=== PATIENT | male | born 1970 | race American Indian/Alaskan Native ===

== ENCOUNTER 2016-12-06 20:16 | Inpatient (IN) | payer MEDICARE, OTHER ==
[2016-12-06 20:59] VITALS: BMI 24.4
[2016-12-06] MEDS: Insulin Regular 100 units/ml SC SCH (22:00)
--- NOTE | 2016-12-06 22:32 | CP.PCM.HP ---
History of Present Illness - History of Present Illness History of Present Illness: PCP: Kyara Holliday MD Chief Complaint: Multiple Sclerosis Progression HPI: 46 years old male with Hx of Spondylosis, Multiple sclerosis, was admitted at the [facility] on December and diagnosed with Secondary progression Multiple sclerosis. He was followed by the Neurologist Dr Figueroa and treated with IV MethylPrednisolone. He is discharged to the [facility] for continued care and Physical therapy. He refers less numbness to the left face, left upper and lower extremities and the back. He still has significant weakness to both lower extremities and only could ambulate with a walker. He also refers LUQ abdominal pain and constipation. PMH: Multiple Sclerosis; PSH: Spondylosis with L5-S1 Fusion 2006 SH: No smoking hx; Alcohol Social; No illegal drugs; Live alone since his wilf left a month ago FH: No hereditary diseases Allergies: NKDA Allergic to Peas; peanuts; Chocolate Present on Admission - Present on Admission Any Indicators Present on Admission: No History of DVT/PE: No History of Uncontrolled Diabetes: No Urinary Catheter: No Decubitus Ulcer Present: No Review of Systems - Constitutional Constitutional: absent: Anorexia, Fatigue, Fever, Headache - EENT Eyes: absent: Diplopia, Floaters, Photophobia, Requires Corrective Lenses Ears: absent: Decreased Hearing, Ear Discharge, Ear Pain, Tinnitus Nose/Mouth/Throat: absent: Epistaxis, Nasal Congestion, Nasal Discharge, Sinus Pain, Sinus Pressure - Cardiovascular Cardiovascular: absent: Chest Pain, Dyspnea, Leg Edema - Respiratory Respiratory: absent: Cough, Dyspnea, Wheezing - Gastrointestinal Gastrointestinal: Abdominal Pain, Constipation. absent: Diarrhea, Nausea, Vomiting Additional comments: LUQ abdominal pain - Genitourinary Genitourinary: absent: Dysuria, Flank Pain, Hematuria, Freq UTI - Musculoskeletal Musculoskeletal: Abnormal Gait, Muscle Weakness - Integumentary Integumentary: absent: Pruritus, Rash, Skin Ulcer, Sores, Striae - Neurological Neurological: Weakness. absent: Confusion, Headaches - Psychiatric Psychiatric: absent: Anxiety, Depression, Panic Attacks - Endocrine Endocrine: absent: Palpitations, Polydipsia, Polyphagia, Polyuria - Hematologic/Lymphatic Hematologic: absent: Easy Bleeding, Easy Bruising Past Patient History - Infectious Disease Hx of Infectious Diseases: None - Past Medical History & Family History Past Medical History?: Yes - Past Social History Smoking Status: Never Smoked Chewing Tobacco Use: No Cigar Use: No Alcohol: Social Drugs: Denies Home Situation {Lives}: Alone - CARDIAC Hx Cardiac Disorders: No - PULMONARY Hx Respiratory Disorders: No - NEUROLOGICAL Hx Multiple Sclerosis: Yes (primary progressive) - HEENT Hx HEENT Problems: No - RENAL Hx Chronic Kidney Disease: No - ENDOCRINE/METABOLIC Hx Endocrine Disorders: No - HEMATOLOGICAL/ONCOLOGICAL Hx Blood Disorders: No - INTEGUMENTARY Hx Dermatological Problems: No - MUSCULOSKELETAL/RHEUMATOLOGICAL Hx Falls: Yes - GASTROINTESTINAL Hx Gastrointestinal Disorders: No - GENITOURINARY/GYNECOLOGICAL Hx Genitourinary Disorders: No - PSYCHIATRIC Hx Substance Use: No - SURGICAL HISTORY Hx Surgeries: Yes Hx Orthopedic Surgery: Yes (spinal fusion for l4-l5) - ANESTHESIA Hx Anesthesia: Yes Hx Anesthesia Reactions: No Meds Allergies/Adverse Reactions: Allergies Allergy/AdvReac Type Severity Reaction Status Date / Time chocolate flavor Allergy DIZZINESS Verified 12/06/16 20:58 corn Allergy DIZZINESS Verified 12/06/16 20:58 peanuts Allergy Unknown tingling Uncoded 12/06/16 20:58 peas Allergy Unknown SHORTNESS Uncoded 06/16/15 12:38 OF BREATH Physical Exam - Head Exam Head Exam: ATRAUMATIC, NORMAL INSPECTION, NORMOCEPHALIC - Eye Exam Eye Exam: EOMI, Normal appearance Pupil Exam: NORMAL ACCOMODATION, PERRL - ENT Exam ENT Exam: Mucous Membranes Moist, Normal Exam, Normal External Ear Exam, Normal Oropharynx - Neck Exam Neck exam: Positive for: Normal Inspection. Negative for: Lymphadenopathy, Tenderness - Respiratory Exam Respiratory Exam: Clear to Auscultation Bilateral. absent: Rales, Rhonchi, Wheezes - Cardiovascular Exam Cardiovascular Exam: REGULAR RHYTHM, RRR, +S1, +S2. absent: Gallop, JVD - GI/Abdominal Exam GI & Abdominal Exam: Normal Bowel Sounds, Soft. absent: Mass, Organomegaly, Tenderness - Rectal Exam Rectal Exam: Deferred - Extremities Exam Extremities exam: Negative for: full ROM, pedal edema, tenderness - Back Exam Back exam: NORMAL INSPECTION. absent: CVA tenderness (L), CVA tenderness (R) - Neurological Exam Neurological exam: Alert, CN II-XII Intact, Oriented x3 Additional comments: No facial droop, Motor strength 1/5 at both lower extremities. - Psychiatric Exam Psychiatric exam: Normal Affect, Normal Mood - Skin Skin Exam: Dry, Intact, Normal Color, Warm Results - Labs Labs: Laboratory Results - last 24 hr 12/06/16 21:40 POC Glucose (mg/dL) 172 H HIV 1&2 antibody *ve on 12/04/16 BUN 14 Creatinine 0.9 Hb 14 Ht 43 Assessment & Plan - Assessment and Plan (Free Text) Assessment: #. Secondary Progressive Multiple Sclerosis #. Abdominal Pain Plan: 46 years old male with Hx of Spondylosis, Multiple sclerosis, was admitted at the [facility] on December First and diagnosed with Secondary progression Multiple sclerosis. Neurologist Dr Figueroa and treated with IV MethylPrednisolone. He is discharged to the [facility] for continued care and Physical therapy. #. Secondary Progressive Multiple Sclerosis - Continue Solu-Medrol 250mg IVPB Q6H for # days - Follow electrolytes/renal labs/ CBC - Regular Insulin according to sliding scale with Accucheck ACHS - Ampyra 10mg Q12H ( Non formulary) Patient has medication at his home but no one is at home - Consult Physiatry Dr Lara - PT and OT - Follow up with Dr Figueroa Neurologist one week after D/C from Rehab as indicated in the medical records from [facility] #. Abdominal Pain secondary to constipation - Lactulose/ Miralax/Colace #. Stress Ulcer Prophylaxis with Pantoprazole #. Code Status: Full #. Surrogate Sandra Cottrell - Date & Time Date: 12/06/16 Time: 22:31
[2016-12-07 08:00] LABS: ALB/GLOB RATIO 1.3 (1.0-2.1); ALKALINE PHOSPHATASE 57 U/L (38-126); ALT/SGPT 31 U/L (21-72); AST/SGOT 18 U/L (17-59); BILIRUBIN,TOTAL 0.5 mg/dl (0.2-1.3); BLOOD UREA NITROGEN 20 mg/dl (9-20); CALCIUM 9.4 mg/dL (8.4-10.2); CARBON DIOXIDE 25 mmol/L (22-30); CHLORIDE 107 mmol/L (98-107); GFR AFRICAN-AMERICAN > 60; GLUCOSE,RANDOM 158 mg/dL (75-110); POTASSIUM 4.4 MMOL/L (3.6-5.0); SODIUM 139 mmol/l (132-148); TOTAL PROTEIN 6.2 G/DL (6.3-8.2)
[2016-12-07 08:25] LABS: BASO % 0.2 % (0.0-2.0); HEMATOCRIT 41.3 % (35.0-51.0); LYMPH # 0.9 K/uL (1.0-4.3); LYMPH % 5.2 % (20.0-40.0); MEAN CELL VOLUME 80.7 fl (80.0-94.0); MEAN CORPUSCULAR HEMOGLOBIN 26.6 pg (27.0-31.0); MEAN CORPUSCULAR HGB CONC 32.9 g/dL (33.0-37.0); MEAN PLATELET VOLUME 9.5 fl (7.2-11.7); MONO # 0.9 K/uL (0.0-0.8); MONO % 5.3 % (0.0-10.0); NEUT # 16.1 K/uL (1.8-7.0); NEUT % 89.3 % (50.0-75.0); PLATELET COUNT 150 K/uL (130-400); RED CELL DISTRIBUTION WIDTH 14.2 % (11.5-14.5)
[2016-12-07] MEDS: Insulin Regular 100 units/ml SC SCH ×4 (08:33→21:29)
[2016-12-07] MEDS: Pantoprazole 40 mg EC Tab PO SCH (08:35)
[2016-12-07] MEDS: POLYETHYLENE GLYCOL 3350 17 GM/Dose PACKET PO SCH ×2 (08:35→17:15)
[2016-12-07 08:55] LABS: PARTIAL THROMBOPLASTIN TIME 22.8 SECONDS (23.3-32.5)
[2016-12-07] MEDS ORDERED: CYCLOBENZAPRINE 5 MG PO SCH (09:00)
[2016-12-07] MEDS ORDERED: DALFAMPRIDINE 10 MG PO SCH (09:00)
[2016-12-07 09:50] LABS: NEUTROPHIL 87 % (42-75); TOTAL CELLS COUNTED 100
[2016-12-07] MEDS: Enoxaparin 60 mg Syringe SC SCH (12:29)
--- NOTE | 2016-12-07 18:02 | CP.PCM.CON ---
History of Present Illness - History of Present Illness History of Present Illness: Dr Lara PMR consultation on Jimmy Cottrell, born 1970, who has been admitted to [facility] for acute inpatient rehabilitation following an admission for MS exacerbation. He has a 20 year history of MS. Dr Figueroa has been following him for almost 15 years. He has primarily L>R and LE>UE weakness. Each time he has a flare (which is 2x/yr usually) he is a little worse. He does not use an assistive device for ambulation usually. He has fallen on multiple occasions Review of Systems - Constitutional Constitutional: absent: Anorexia, Chills - EENT Nose/Mouth/Throat: absent: Nasal Congestion - Cardiovascular Cardiovascular: absent: Chest Pain - Respiratory Respiratory: absent: Dyspnea - Gastrointestinal Gastrointestinal: Constipation (x5 days) - Musculoskeletal Musculoskeletal: absent: Arthralgias - Neurological Neurological: Abnormal Gait Past Patient History - Infectious Disease Hx of Infectious Diseases: None - Past Medical History & Family History Past Medical History?: Yes - Past Social History Smoking Status: Never Smoked Chewing Tobacco Use: No Cigar Use: No Alcohol: Social Drugs: Denies Home Situation {Lives}: Alone - CARDIAC Hx Cardiac Disorders: No - PULMONARY Hx Respiratory Disorders: No - NEUROLOGICAL Hx Multiple Sclerosis: Yes (primary progressive) - HEENT Hx HEENT Problems: No - RENAL Hx Chronic Kidney Disease: No - ENDOCRINE/METABOLIC Hx Endocrine Disorders: No - HEMATOLOGICAL/ONCOLOGICAL Hx Blood Disorders: No - INTEGUMENTARY Hx Dermatological Problems: No - MUSCULOSKELETAL/RHEUMATOLOGICAL Hx Falls: Yes - GASTROINTESTINAL Hx Gastrointestinal Disorders: No - GENITOURINARY/GYNECOLOGICAL Hx Genitourinary Disorders: No - PSYCHIATRIC Hx Substance Use: No - SURGICAL HISTORY Hx Surgeries: Yes Hx Orthopedic Surgery: Yes (spinal fusion for l4-l5) - ANESTHESIA Hx Anesthesia: Yes Hx Anesthesia Reactions: No Meds Allergies/Adverse Reactions: Allergies Allergy/AdvReac Type Severity Reaction Status Date / Time chocolate flavor Allergy DIZZINESS Verified 12/06/16 20:58 corn Allergy DIZZINESS Verified 12/06/16 20:58 - Medications Medications: Current Medications Alprazolam (Xanax) 0.25 mg PO HS PRN PRN Reason: Anxiety Stop: 12/13/16 22:18 Cyclobenzaprine HCl (Flexeril) 5 mg PO TID DUDLEY Last Admin: 05/04/17 17:14 Dose: 5 mg Docusate Sodium (Colace) 100 mg PO BID COUNTS INCLUDE 234 BEDS AT THE [facility] Last Admin: 12/07/16 17:14 Dose: 100 mg Enoxaparin Sodium (Lovenox) 60 mg SC DAILY COUNTS INCLUDE 234 BEDS AT THE [facility] PRN Reason: Protocol Last Admin: 12/07/16 12:29 Dose: 60 mg Home Med (Dalfampridine [Ampyra]) 10 mg PO Q12 COUNTS INCLUDE 234 BEDS AT THE [facility] Methylprednisolone 250 mg/ (Sodium Chloride) 104 mls @ 100 mls/hr IVPB Q6 COUNTS INCLUDE 234 BEDS AT THE [facility] Last Admin: 12/07/16 17:19 Dose: 100 mls/hr Insulin Human Regular (Humulin R) 0 units SC ACHS COUNTS INCLUDE 234 BEDS AT THE [facility] PRN Reason: Protocol Last Admin: 12/07/16 17:15 Dose: 2 unit Ondansetron HCl (Zofran Tab) 4 mg PO Q4 PRN PRN Reason: Nausea/Vomiting Pantoprazole Sodium (Protonix Ec Tab) 40 mg PO DAILY COUNTS INCLUDE 234 BEDS AT THE [facility] Last Admin: 12/07/16 08:35 Dose: 40 mg Polyethylene Glycol (Miralax) 17 gm PO BID COUNTS INCLUDE 234 BEDS AT THE [facility] Last Admin: 12/07/16 17:15 Dose: 17 gm Zolpidem Tartrate (Ambien) 5 mg PO HS PRN PRN Reason: Sleep Physical Exam - Constitutional Appears: No Acute Distress - Head Exam Head Exam: ATRAUMATIC, NORMAL INSPECTION, NORMOCEPHALIC - Eye Exam Eye Exam: EOMI - ENT Exam ENT Exam: Mucous Membranes Moist - Respiratory Exam Respiratory Exam: NORMAL BREATHING PATTERN - Cardiovascular Exam Cardiovascular Exam: REGULAR RHYTHM - GI/Abdominal Exam GI & Abdominal Exam: absent: Guarding - Extremities Exam Extremities exam: Negative for: calf tenderness - Neurological Exam Neurological exam: Alert, CN II-XII Intact, Oriented x3 - Psychiatric Exam Psychiatric exam: Agitated, Normal Affect - Skin Skin Exam: Warm Results - Vital Signs Recent Vital Signs: Last Vital Signs Temp 96.9 F L 12/07/16 08:23 Pulse 61 12/07/16 08:23 Resp 22 12/07/16 08:23 BP 135/76 12/07/16 08:34 Pulse Ox 98 12/07/16 08:23 - Labs Result Diagrams: 12/07/16 07:25 12/07/16 07:25 Labs: Laboratory Results - last 24 hr 12/06/16 12/07/16 12/07/16 21:40 06:31 07:25 WBC 18.0 H RBC 5.12 Hgb 13.6 Hct 41.3 MCV 80.7 MCH 26.6 L MCHC 32.9 L RDW 14.2 Plt Count 150 MPV 9.5 Neut % (Auto) 89.3 H Lymph % (Auto) 5.2 L Garza % (Auto) 5.3 Eos % (Auto) 0.0 Baso % (Auto) 0.2 Neut # 16.1 H Lymph # 0.9 L Garza # 0.9 H Eos # 0.0 Baso # 0.0 Neutrophils % (Manual) 87 H Lymphocytes % (Manual) 7 L Monocytes % (Manual) 6 Platelet Estimate Normal Anisocytosis (manual) Slight PT INR APTT Sodium Potassium Chloride Carbon Dioxide Anion Gap BUN Creatinine Est GFR ( Amer) Est GFR (Non-Af Amer) POC Glucose (mg/dL) 172 H 162 H Random Glucose Calcium Total Bilirubin AST ALT Alkaline Phosphatase Total Protein Albumin Globulin Albumin/Globulin Ratio 12/07/16 12/07/16 12/07/16 07:25 07:25 11:53 WBC RBC Hgb Hct MCV MCH MCHC RDW Plt Count MPV Neut % (Auto) Lymph % (Auto) Garza % (Auto) Eos % (Auto) Baso % (Auto) Neut # Lymph # Garza # Eos # Baso # Neutrophils % (Manual) Lymphocytes % (Manual) Monocytes % (Manual) Platelet Estimate Anisocytosis (manual) PT 11.9 H INR 1.14 H APTT 22.8 L Sodium 139 Potassium 4.4 Chloride 107 Carbon Dioxide 25 Anion Gap 11 BUN 20 Creatinine 0.9 Est GFR ( Amer) > 60 Est GFR (Non-Af Amer) > 60 POC Glucose (mg/dL) 151 H Random Glucose 158 H Calcium 9.4 Total Bilirubin 0.5 AST 18 ALT 31 Alkaline Phosphatase 57 Total Protein 6.2 L Albumin 3.5 Globulin 2.7 Albumin/Globulin Ratio 1.3 12/07/16 15:53 WBC RBC Hgb Hct MCV MCH MCHC RDW Plt Count MPV Neut % (Auto) Lymph % (Auto) Garza % (Auto) Eos % (Auto) Baso % (Auto) Neut # Lymph # Garza # Eos # Baso # Neutrophils % (Manual) Lymphocytes % (Manual) Monocytes % (Manual) Platelet Estimate Anisocytosis (manual) PT INR APTT Sodium Potassium Chloride Carbon Dioxide Anion Gap BUN Creatinine Est GFR ( Amer) Est GFR (Non-Af Amer) POC Glucose (mg/dL) 214 H Random Glucose Calcium Total Bilirubin AST ALT Alkaline Phosphatase Total Protein Albumin Globulin Albumin/Globulin Ratio Assessment & Plan - Assessment and Plan (Free Text) Assessment: Patient with secondary progressive MS with a flare. + sugars increased from steroid + constipation, he would like to increase the Miralax He usually gets Baclofen and I will write for this PT/OT to continue to help increase functional independence Team conference for d/c planning Pain: controlled Vascular: no evidence of DVT good coordination in the UE, decrease handgrip on the left Left LE not anti-gravity at all and only trace distal movement at the ankle right LE 3/5 grossly Patient is an excellent acute rehabilitation candidate and will have focused pain management, PT, OT and recreational therapy to help facilitate a safe and appropriate d/c plan Impairment code 03.1
[2016-12-07] MEDS ORDERED: POLYETHYLENE GLYCOL 3350 17 GM/Dose PACKET PO SCH (19:17)
--- NOTE | 2016-12-08 00:02 | CP.PCM.CON ---
History of Present Illness - History of Present Illness History of Present Illness: 46 y/o male, with PMHx of multiple sclerosis, presents to ED with complaint of weakness for the last 3 days. Patient states he has been unable to walk due to weakness of lower extremities. Also, reports LUQ abdominal pain. Denies any nausea or vomiting. Patient states he has had similar weakness in the past. Denies headache, fever, chills, chest pain, SOB, or other associated symptoms. Chief Complaint (Nursing): Weakness/Neurological Deficit His urine is showing 36 RBCs, 4 WBCs He is sabering from Multiple Sclerosis since more than 20 years and is my patient since more than 15 years. He is receiving Aubagio, and he keeps on changing his medicine on his own. He is also on Ampyra, Zanaflex. History Per: Patient Multiple Sclerosis Relapsing remitting initially that progressed into Progressive. 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 he has left side hemiparesis, poor coordination History/Exam Limitations: no limitations Onset/Duration Of Symptoms: Days Current Symptoms Are (Timing): Still Present Fall Associated With With Symptoms: No Recent travel outside of the [place]: No Past Medical History Reviewed: Historical Data, Nursing Documentation, Vital Signs Vital Signs: Last Vital Signs Temp 97.8 F 12/04/16 17:51 Pulse 67 12/04/16 17:51 Resp 16 12/04/16 17:51 BP 118/75 12/04/16 17:51 Pulse Ox 98 12/04/16 22:34 - Medical History PMH: Multiple Sclerosis Relapsing remitting initially that progressed into Progressive. 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 he has left side hemiparesis, poor coordination Denies: Chronic Kidney Disease Family History: States: Diabetes - Social History Hx Tobacco Use: No Hx Alcohol Use: No Hx Substance Use: No - Immunization History Hx Tetanus Toxoid Vaccination: No Hx Influenza Vaccination: No Hx Pneumococcal Vaccination: No Review Of Systems Except As Marked, All Systems Reviewed And Found Negative. Constitutional: Negative for: Fever, Chills Cardiovascular: Negative for: Chest Pain Respiratory: Negative for: Shortness of Breath Gastrointestinal: Positive for: Abdominal Pain. Negative for: Nausea, Vomiting , Diarrhea Skin: Negative for: Rash Neurological: Positive for: Weakness. Negative for: Headache, Dizziness Physical Exam - Physical Exam Appears: Non-toxic, No Acute Distress Skin: Normal Color, Warm, Dry Head: Atraumatic, Normacephalic Chest: Symmetrical Cardiovascular: Rhythm Regular, No Murmur Respiratory: Normal Breath Sounds, No Rales, No Rhonchi, No Wheezing Gastrointestinal/Abdominal: Soft, Tenderness (LUQ), No Guarding, No Rebound Back: Normal Inspection Extremity: Normal ROM, Capillary Refill (< 2 sec. ), Other (weakness BL lower extremities, mild weakness left upper extremity) Neurological/Psych: Oriented x3, Normal Speech, Normal Cognition Clinical Impression: Multiple sclerosis exacerbation, Abdominal pain, Gastritis Past Patient History - Infectious Disease Hx of Infectious Diseases: None - Past Medical History & Family History Past Medical History?: Yes - Past Social History Smoking Status: Never Smoked - CARDIAC Hx Cardiac Disorders: No - PULMONARY Hx Respiratory Disorders: No - NEUROLOGICAL Hx Multiple Sclerosis: Yes (primary progressive) - HEENT Hx HEENT Problems: No - RENAL Hx Chronic Kidney Disease: No - ENDOCRINE/METABOLIC Hx Endocrine Disorders: No - HEMATOLOGICAL/ONCOLOGICAL Hx Blood Disorders: No - INTEGUMENTARY Hx Dermatological Problems: No - MUSCULOSKELETAL/RHEUMATOLOGICAL Hx Falls: Yes - GASTROINTESTINAL Hx Gastrointestinal Disorders: No - GENITOURINARY/GYNECOLOGICAL Hx Genitourinary Disorders: No - PSYCHIATRIC Hx Substance Use: No - SURGICAL HISTORY Hx Surgeries: Yes Hx Orthopedic Surgery: Yes (spinal fusion for l4-l5) - ANESTHESIA Hx Anesthesia: Yes Hx Anesthesia Reactions: No Meds Home Medications: Home Medication List Medication Instructions Recorded Confirmed Type ALPRAZolam [Xanax] 0.25 mg PO HS PRN #10 tab 12/06/16 Rx Cyclobenzaprine [Flexeril] 5 mg PO TID tab 12/06/16 Rx Dalfampridine [Ampyra] 10 mg PO Q12 12/06/16 Rx Docusate [Colace] 100 mg PO DAILY cap 12/06/16 Rx Enoxaparin [Lovenox] 60 mg SC DAILY syr 12/06/16 Rx Furosemide [Lasix] 20 mg PO DAILY tab 12/06/16 Rx Insulin Human Regular [Novolin R] 0 unit SC ACHS unit 12/06/16 Rx Pantoprazole [Protonix Inj] 40 mg IVP DAILY vial 12/06/16 Rx Polyethylene Glycol 3350 [Miralax] 17 gm PO BID packet 12/06/16 Rx methylPREDNISolone [Solu-Medrol] 250 mg IVP Q6H #14 ml 12/06/16 Rx Allergies/Adverse Reactions: Allergies Allergy/AdvReac Type Severity Reaction Status Date / Time chocolate flavor Allergy DIZZINESS Verified 12/06/16 20:58 corn Allergy DIZZINESS Verified 12/06/16 20:58 - Medications Medications: Current Medications Sodium Chloride (Sodium Chloride 0.9%) 1,000 mls @ 100 mls/hr IV .Q10H ONE Stop: 12/05/16 05:27 Last Admin: 12/04/16 19:55 Dose: 100 mls/hr Results - Vital Signs Recent Vital Signs: Last Vital Signs Temp 97.6 F 12/05/16 00:18 Pulse 61 12/05/16 00:18 Resp 20 12/05/16 00:18 BP 125/80 12/05/16 00:18 Pulse Ox 95 12/05/16 00:18 - Labs Result Diagrams: 12/04/16 20:02 12/04/16 20:02 Assessment & Plan (1) Abdominal pain Status: Acute (2) Gastritis Status: Acute (3) Multiple sclerosis exacerbation Status: Acute (4) Back strain Status: Chronic (5) Difficulty walking Status: Acute (6) Facial palsy Assessment and Plan: mild condition of left Facial Palsy. Status: Acute Past Patient History - Infectious Disease Hx of Infectious Diseases: None - Past Medical History & Family History Past Medical History?: Yes - Past Social History Smoking Status: Never Smoked Chewing Tobacco Use: No Cigar Use: No Alcohol: Social Drugs: Denies Home Situation {Lives}: Alone - CARDIAC Hx Cardiac Disorders: No - PULMONARY Hx Respiratory Disorders: No - NEUROLOGICAL Hx Multiple Sclerosis: Yes (primary progressive) - HEENT Hx HEENT Problems: No - RENAL Hx Chronic Kidney Disease: No - ENDOCRINE/METABOLIC Hx Endocrine Disorders: No - HEMATOLOGICAL/ONCOLOGICAL Hx Blood Disorders: No - INTEGUMENTARY Hx Dermatological Problems: No - MUSCULOSKELETAL/RHEUMATOLOGICAL Hx Falls: Yes - GASTROINTESTINAL Hx Gastrointestinal Disorders: No - GENITOURINARY/GYNECOLOGICAL Hx Genitourinary Disorders: No - PSYCHIATRIC Hx Substance Use: No - SURGICAL HISTORY Hx Surgeries: Yes Hx Orthopedic Surgery: Yes (spinal fusion for l4-l5) - ANESTHESIA Hx Anesthesia: Yes Hx Anesthesia Reactions: No Meds Allergies/Adverse Reactions: Allergies Allergy/AdvReac Type Severity Reaction Status Date / Time chocolate flavor Allergy DIZZINESS Verified 12/06/16 20:58 corn Allergy DIZZINESS Verified 12/06/16 20:58 - Medications Medications: Current Medications Alprazolam (Xanax) 0.25 mg PO HS PRN PRN Reason: Anxiety Stop: 12/13/16 22:18 Baclofen (Lioresal) 10 mg PO TID [facility] Docusate Sodium (Colace) 100 mg PO BID [facility] Last Admin: 12/07/16 17:14 Dose: 100 mg Enoxaparin Sodium (Lovenox) 60 mg SC DAILY [facility] PRN Reason: Protocol Last Admin: 12/07/16 12:29 Dose: 60 mg Home Med (Dalfampridine [Ampyra]) 10 mg PO Q12 [facility] Methylprednisolone 250 mg/ (Sodium Chloride) 104 mls @ 100 mls/hr IVPB Q6 [facility] Last Admin: 12/07/16 23:05 Dose: 100 mls/hr Insulin Human Regular (Humulin R) 0 units SC ACHS [facility] PRN Reason: Protocol Last Admin: 12/07/16 21:29 Dose: Not Given Ondansetron HCl (Zofran Tab) 4 mg PO Q4 PRN PRN Reason: Nausea/Vomiting Pantoprazole Sodium (Protonix Ec Tab) 40 mg PO DAILY [facility] Last Admin: 12/07/16 08:35 Dose: 40 mg Polyethylene Glycol (Miralax) 34 gm PO BID [facility] Zolpidem Tartrate (Ambien) 5 mg PO HS PRN PRN Reason: Sleep Last Admin: 12/07/16 23:04 Dose: 5 mg Physical Exam - Neurological Exam Additional comments: Physical Exam - Neurological Exam Additional comments: Mental Status: Awake, Alert, Oriented X 3, Normal Memory X 3 Speech is less Dysarthric, fluent coherent Cranial Nerves II to XII: Left facial Palsy UMNL type Left TERESA Tongue is central, normal Gag reflex. He is able to shrug his shoulders. less on the left side. Motor: Increased spastic tone on the left side of UE and LE Left Pronator Drift left hemiparesis DTR: exaggerated on the left Toes are upgoing on the left side Sensory: sense of pain on the left side Cerebellar: Poor coordination in general, mainly on the left side. Abnormal FNT of the Left and Poor movements on the Left Stature and Gait: Now he is able to walk and stand on his own with some difficulty Results - Vital Signs Recent Vital Signs: Last Vital Signs Temp 98.1 F 12/07/16 21:09 Pulse 75 12/07/16 21:09 Resp 20 12/07/16 21:09 BP 140/79 12/07/16 21:09 Pulse Ox 98 12/07/16 21:09 - Labs Result Diagrams: 12/07/16 07:25 12/07/16 07:25 Labs: Laboratory Results - last 24 hr 12/07/16 12/07/16 12/07/16 06:31 07:25 07:25 WBC 18.0 H RBC 5.12 Hgb 13.6 Hct 41.3 MCV 80.7 MCH 26.6 L MCHC 32.9 L RDW 14.2 Plt Count 150 MPV 9.5 Neut % (Auto) 89.3 H Lymph % (Auto) 5.2 L [place] % (Auto) 5.3 Eos % (Auto) 0.0 Baso % (Auto) 0.2 Neut # 16.1 H Lymph # 0.9 L [place] # 0.9 H Eos # 0.0 Baso # 0.0 Neutrophils % (Manual) 87 H Lymphocytes % (Manual) 7 L Monocytes % (Manual) 6 Platelet Estimate Normal Anisocytosis (manual) Slight PT 11.9 H INR 1.14 H APTT 22.8 L Sodium Potassium Chloride Carbon Dioxide Anion Gap BUN Creatinine Est GFR ( Amer) Est GFR (Non-Af Amer) POC Glucose (mg/dL) 162 H Random Glucose Calcium Total Bilirubin AST ALT Alkaline Phosphatase Total Protein Albumin Globulin Albumin/Globulin Ratio 12/07/16 12/07/16 12/07/16 07:25 11:53 15:53 WBC RBC Hgb Hct MCV MCH MCHC RDW Plt Count MPV Neut % (Auto) Lymph % (Auto) [place] % (Auto) Eos % (Auto) Baso % (Auto) Neut # Lymph # [place] # Eos # Baso # Neutrophils % (Manual) Lymphocytes % (Manual) Monocytes % (Manual) Platelet Estimate Anisocytosis (manual) PT INR APTT Sodium 139 Potassium 4.4 Chloride 107 Carbon Dioxide 25 Anion Gap 11 BUN 20 Creatinine 0.9 Est GFR ( Amer) > 60 Est GFR (Non-Af Amer) > 60 POC Glucose (mg/dL) 151 H 214 H Random Glucose 158 H Calcium 9.4 Total Bilirubin 0.5 AST 18 ALT 31 Alkaline Phosphatase 57 Total Protein 6.2 L Albumin 3.5 Globulin 2.7 Albumin/Globulin Ratio 1.3 12/07/16 20:44 WBC RBC Hgb Hct MCV MCH MCHC RDW Plt Count MPV Neut % (Auto) Lymph % (Auto) [place] % (Auto) Eos % (Auto) Baso % (Auto) Neut # Lymph # [place] # Eos # Baso # Neutrophils % (Manual) Lymphocytes % (Manual) Monocytes % (Manual) Platelet Estimate Anisocytosis (manual) PT INR APTT Sodium Potassium Chloride Carbon Dioxide Anion Gap BUN Creatinine Est GFR ( Amer) Est GFR (Non-Af Amer) POC Glucose (mg/dL) 259 H Random Glucose Calcium Total Bilirubin AST ALT Alkaline Phosphatase Total Protein Albumin Globulin Albumin/Globulin Ratio Assessment & Plan (1) Abdominal pain Assessment and Plan: much less than before and was related to constipation, it improved after moving his bowel by using a suppository. Status: Acute (2) Difficulty walking Status: Chronic (3) Edema of foot Status: Acute (4) Facial palsy Assessment and Plan: Left side mild facial Palsy that is improving on Solumedrol and on Rehab. Status: Acute (5) Gastritis Assessment and Plan: improved on treatment Status: Acute (6) Low TSH level Status: Acute (7) Low back pain Assessment and Plan: H/O Lumbar Radiculopathy Also having a H/O Cervical Radiculopathy Status: Acute (8) Multiple sclerosis exacerbation Status: Acute
[2016-12-08] MEDS: Insulin Regular 100 units/ml SC SCH ×4 (07:37→22:46)
[2016-12-08] MEDS: Enoxaparin 60 mg Syringe SC SCH (08:49)
[2016-12-08] MEDS: Pantoprazole 40 mg EC Tab PO SCH (08:50)
--- NOTE | 2016-12-08 11:01 | CP.PCM.PN ---
Subjective - Date & Time of Evaluation Date of Evaluation: 12/08/16 Time of Evaluation: 10:59 - Subjective Subjective: MS exacerbation Objective - Vital Signs/Intake and Output Vital Signs (last 24 hours): Temp Pulse Resp BP Pulse Ox 97.7 F 64 20 135/68 99 12/08/16 08:10 12/08/16 08:10 12/08/16 08:10 12/08/16 08:10 12/08/16 08:10 - Medications Medications: Current Medications Alprazolam (Xanax) 0.25 mg PO HS PRN PRN Reason: Anxiety Stop: 12/13/16 22:18 Baclofen (Lioresal) 10 mg PO TID [facility] Last Admin: 12/08/16 08:49 Dose: 10 mg Docusate Sodium (Colace) 100 mg PO BID [facility] Last Admin: 12/08/16 08:49 Dose: 100 mg Enoxaparin Sodium (Lovenox) 60 mg SC DAILY [facility] PRN Reason: Protocol Last Admin: 12/08/16 08:49 Dose: 60 mg Home Med (Dalfampridine [Ampyra]) 10 mg PO Q12 [facility] Methylprednisolone 250 mg/ (Sodium Chloride) 104 mls @ 100 mls/hr IVPB Q6 [facility] Last Admin: 12/08/16 05:43 Dose: 100 mls/hr Insulin Human Regular (Humulin R) 0 units SC ACHS [facility] PRN Reason: Protocol Last Admin: 12/08/16 07:37 Dose: 1 unit Ondansetron HCl (Zofran Tab) 4 mg PO Q4 PRN PRN Reason: Nausea/Vomiting Pantoprazole Sodium (Protonix Ec Tab) 40 mg PO DAILY [facility] Last Admin: 12/08/16 08:50 Dose: 40 mg Polyethylene Glycol (Miralax) 34 gm PO BID [facility] Zolpidem Tartrate (Ambien) 5 mg PO HS PRN PRN Reason: Sleep Last Admin: 12/07/16 23:04 Dose: 5 mg - Labs Labs: 12/07/16 07:25 12/07/16 07:25 PT 11.9 SECONDS (9.6-11.2) H 12/07/16 07:25 INR 1.14 (0.92-1.08) H 12/07/16 07:25 APTT 22.8 SECONDS (23.3-32.5) L 12/07/16 07:25 Physiatry Overall Plan of Care - Overall Plan of Care Estimated Length of Stay in Weeks: 3 Rehab Impairment: Mobility, Gait, Speech, Balance, Coordination Etiologic Diagnosis: Other (MS exacerbation) - Anticipated Interventions Physical Therapy:: Yes Occupational Therapy:: Yes Recreational Therapy:: Yes - Therapy Goals Bed Mobility: Supervision Ambulation: Supervision Functional Positional Changes:: Supervision - Discharge Plan Identification of Barriers to Discharge: Home Situation Discharge Destination: Home
--- NOTE | 2016-12-08 11:14 | CP.PCM.PN ---
Subjective - Date & Time of Evaluation Date of Evaluation: 12/08/16 Time of Evaluation: 11:12 - Subjective Subjective: Patient seen and discussed with hospitalist had good relief with suppository some LBP from prior fusion and we are getting an x-ray he is otherwise looking good today continue care excellent acute rehab candidate Objective - Vital Signs/Intake and Output Vital Signs (last 24 hours): Temp Pulse Resp BP Pulse Ox 97.7 F 64 20 135/68 99 12/08/16 08:10 12/08/16 08:10 12/08/16 08:10 12/08/16 08:10 12/08/16 08:10 - Medications Medications: Current Medications Alprazolam (Xanax) 0.25 mg PO HS PRN PRN Reason: Anxiety Stop: 12/13/16 22:18 Baclofen (Lioresal) 10 mg PO TID [facility] Last Admin: 12/08/16 08:49 Dose: 10 mg Docusate Sodium (Colace) 100 mg PO BID [facility] Last Admin: 12/08/16 08:49 Dose: 100 mg Enoxaparin Sodium (Lovenox) 60 mg SC DAILY [facility] PRN Reason: Protocol Last Admin: 12/08/16 08:49 Dose: 60 mg Home Med (Dalfampridine [Ampyra]) 10 mg PO Q12 [facility] Methylprednisolone 250 mg/ (Sodium Chloride) 104 mls @ 100 mls/hr IVPB Q6 [facility] Last Admin: 12/08/16 05:43 Dose: 100 mls/hr Insulin Human Regular (Humulin R) 0 units SC ACHS [facility] PRN Reason: Protocol Last Admin: 12/08/16 07:37 Dose: 1 unit Ondansetron HCl (Zofran Tab) 4 mg PO Q4 PRN PRN Reason: Nausea/Vomiting Pantoprazole Sodium (Protonix Ec Tab) 40 mg PO DAILY [facility] Last Admin: 12/08/16 08:50 Dose: 40 mg Polyethylene Glycol (Miralax) 34 gm PO BID [facility] Zolpidem Tartrate (Ambien) 5 mg PO HS PRN PRN Reason: Sleep Last Admin: 12/07/16 23:04 Dose: 5 mg - Labs Labs: 12/07/16 07:25 12/07/16 07:25 PT 11.9 SECONDS (9.6-11.2) H 12/07/16 07:25 INR 1.14 (0.92-1.08) H 12/07/16 07:25 APTT 22.8 SECONDS (23.3-32.5) L 12/07/16 07:25
--- NOTE | 2016-12-08 12:40 | CP.PCM.PN ---
Subjective - Date & Time of Evaluation Date of Evaluation: 12/08/16 Time of Evaluation: 12:40 - Subjective Subjective: pt seen examined bedside. discussed extensively his coccyx pain, will obtain XR. otherwise patient states he feels he is doing well and would like to be discharged home soon. vitals are stable no acute distress no other complaints at this time Objective - Vital Signs/Intake and Output Vital Signs (last 24 hours): Temp Pulse Resp BP Pulse Ox 97.7 F 64 20 135/68 99 12/08/16 08:10 12/08/16 08:10 12/08/16 08:10 12/08/16 08:10 12/08/16 08:10 - Medications Medications: Current Medications Alprazolam (Xanax) 0.25 mg PO HS PRN PRN Reason: Anxiety Stop: 12/13/16 22:18 Baclofen (Lioresal) 10 mg PO TID [facility] Last Admin: 12/08/16 08:49 Dose: 10 mg Docusate Sodium (Colace) 100 mg PO BID [facility] Last Admin: 12/08/16 08:49 Dose: 100 mg Enoxaparin Sodium (Lovenox) 60 mg SC DAILY [facility] PRN Reason: Protocol Last Admin: 12/08/16 08:49 Dose: 60 mg Home Med (Dalfampridine [Ampyra]) 10 mg PO Q12 [facility] Methylprednisolone 250 mg/ (Sodium Chloride) 104 mls @ 100 mls/hr IVPB Q6 [facility] Last Admin: 12/08/16 05:43 Dose: 100 mls/hr Insulin Human Regular (Humulin R) 0 units SC ACHS [facility] PRN Reason: Protocol Last Admin: 12/08/16 11:30 Dose: Not Given Ondansetron HCl (Zofran Tab) 4 mg PO Q4 PRN PRN Reason: Nausea/Vomiting Pantoprazole Sodium (Protonix Ec Tab) 40 mg PO DAILY [facility] Last Admin: 12/08/16 08:50 Dose: 40 mg Polyethylene Glycol (Miralax) 34 gm PO BID [facility] Zolpidem Tartrate (Ambien) 5 mg PO HS PRN PRN Reason: Sleep Last Admin: 12/07/16 23:04 Dose: 5 mg - Labs Labs: 12/07/16 07:25 12/07/16 07:25 PT 11.9 SECONDS (9.6-11.2) H 12/07/16 07:25 INR 1.14 (0.92-1.08) H 12/07/16 07:25 APTT 22.8 SECONDS (23.3-32.5) L 12/07/16 07:25 - Constitutional Appears: Non-toxic, No Acute Distress - Head Exam Head Exam: ATRAUMATIC, NORMOCEPHALIC - Eye Exam Eye Exam: EOMI, PERRL - ENT Exam ENT Exam: Mucous Membranes Moist, Normal Oropharynx - Neck Exam Neck Exam: Normal Inspection. absent: Lymphadenopathy - Respiratory Exam Respiratory Exam: Clear to Ausculation Bilateral, NORMAL BREATHING PATTERN. absent: Wheezes - Cardiovascular Exam Cardiovascular Exam: RRR, +S1, +S2. absent: Gallop, Rubs - GI/Abdominal Exam GI & Abdominal Exam: Soft, Normal Bowel Sounds. absent: Tenderness, Mass, Organomegaly - Extremities Exam Extremities Exam: Normal Capillary Refill. absent: Calf Tenderness - Back Exam Back Exam: absent: CVA tenderness (L), CVA tenderness (R) - Neurological Exam Neurological Exam: Alert, Awake - Psychiatric Exam Psychiatric exam: Normal Affect, Normal Mood - Skin Skin Exam: Dry, Warm Assessment and Plan - Assessment and Plan (Free Text) Plan: 46 years old male with Hx of Spondylosis, Multiple sclerosis, was admitted at the [facility] on December and diagnosed with Secondary progression Multiple sclerosis. Neurologist Dr Figueroa and treated with IV MethylPrednisolone. He is discharged to the [facility] for continued care and Physical therapy. Secondary Progressive Multiple Sclerosis - Continue Solu-Medrol 250mg IVPB Q6H - Follow electrolytes/renal labs/ CBC - Regular Insulin according to sliding scale with Accucheck ACHS - Ampyra 10mg Q12H ( Non formulary) Patient has medication at his home but no one is at home - Consult Physiatry Dr Lara - PT and OT, continue, doing well - Follow up with Dr Figueroa Neurologist one week after D/C from Rehab as indicated in the medical records from [facility] Abdominal Pain secondary to constipation - Lactulose/ Miralax/Colace Coccyx pain - Sacrum and Coccyx XR for today Stress Ulcer Prophylaxis with Pantoprazole Code Status: Full Surrogate Sandra Cottrell
[2016-12-09] MEDS: Insulin Regular 100 units/ml SC SCH ×4 (06:50→22:18)
[2016-12-09] MEDS: Pantoprazole 40 mg EC Tab PO SCH (09:26)
[2016-12-09] MEDS: Enoxaparin 60 mg Syringe SC SCH (09:26)
[2016-12-09] MEDS: POLYETHYLENE GLYCOL 3350 17 GM/Dose PACKET PO SCH (09:26)
--- NOTE | 2016-12-09 11:10 | RAD ---
PROCEDURE: Radiographs of the Sacrum and Coccyx HISTORY: coccyx pain COMPARISON: None available. TECHNIQUE: Frontal and lateral views of the sacrum and coccyx FINDINGS: BONES: Sacrum and coccyx unremarkable. No fracture or focal lesion. SACROILIAC JOINTS: Only inferior portions of the sacroiliac joints are identified. These are normal in outline without abnormal widening. Visualized pubic ramus and symphysis are unremarkable. OTHER FINDINGS: Degenerative disc disease is seen at L5-S1. IMPRESSION: No appreciable fracture or lytic process. Degenerative disc disease at L5-S1.
[2016-12-10] MEDS: Insulin Regular 100 units/ml SC SCH ×4 (06:56→22:21)
[2016-12-10 08:16] LABS: HEMATOCRIT 40.7 % (35.0-51.0); MEAN CORPUSCULAR HEMOGLOBIN 26.8 pg (27.0-31.0); MEAN CORPUSCULAR HGB CONC 33.5 g/dL (33.0-37.0); RED CELL DISTRIBUTION WIDTH 14.3 % (11.5-14.5); WHITE BLOOD COUNT 13.1 K/uL (4.8-10.8)
[2016-12-10] MEDS: Pantoprazole 40 mg EC Tab PO SCH (08:37)
[2016-12-10] MEDS: Enoxaparin 40 mg Syringe SC SCH (08:37)
[2016-12-10] MEDS: POLYETHYLENE GLYCOL 3350 17 GM/Dose PACKET PO SCH (08:37)
--- NOTE | 2016-12-10 23:04 | CP.PCM.PN ---
Subjective - Date & Time of Evaluation Date of Evaluation: 12/10/16 Time of Evaluation: 18:45 - Subjective Subjective: He is having twitches in his left shoulder which might be related to his hyper intake of Vitamins, mainly Vitamin D, Vitamin B6, Vitamin A, Vitamin E, Vitamin K His vitamin D level is high as well as his Vitamin B 12 is high. He takes so many vitamins daily. He had an EEG and will get the results He is receiving IV Solumedrol for a course of 5 full days of 250 mg Q6 hrs. P/E is showing less left sided weakness and more coordination. Objective - Vital Signs/Intake and Output Vital Signs (last 24 hours): Temp Pulse Resp BP Pulse Ox 97.2 F L 76 20 142/85 97 12/10/16 09:10 12/10/16 09:10 12/10/16 09:10 12/10/16 14:22 12/10/16 09:10 - Medications Medications: Current Medications Alprazolam (Xanax) 0.25 mg PO HS PRN PRN Reason: Anxiety Stop: 12/13/16 22:18 Amoxicillin (Amoxil 500 Mg Cap) 500 mg PO Q8 [facility] Stop: 12/12/16 06:01 Last Admin: 12/10/16 21:53 Dose: 500 mg Baclofen (Lioresal) 10 mg PO TID [facility] Last Admin: 12/10/16 16:58 Dose: 10 mg Docusate Sodium (Colace) 100 mg PO BID [facility] Last Admin: 12/10/16 16:59 Dose: 100 mg Enoxaparin Sodium (Lovenox) 40 mg SC DAILY [facility] PRN Reason: Protocol Last Admin: 12/10/16 08:37 Dose: 40 mg Furosemide (Lasix) 20 mg PO DAILY [facility] Last Admin: 12/10/16 14:22 Dose: 20 mg Home Med (Dalfampridine [Ampyra]) 10 mg PO Q12 [facility] Methylprednisolone 250 mg/ (Sodium Chloride) 104 mls @ 100 mls/hr IVPB 0300, 0900,1500,2100 [facility] Stop: 12/12/16 03:00 Last Admin: 12/10/16 21:43 Dose: 100 mls/hr Insulin Human Regular (Humulin R) 0 units SC ACHS [facility] PRN Reason: Protocol Last Admin: 12/10/16 22:21 Dose: Not Given Ondansetron HCl (Zofran Tab) 4 mg PO Q4 PRN PRN Reason: Nausea/Vomiting Pantoprazole Sodium (Protonix Ec Tab) 40 mg PO DAILY [facility] Last Admin: 12/10/16 08:37 Dose: 40 mg Polyethylene Glycol (Miralax) 17 gm PO DAILY [facility] Last Admin: 12/10/16 08:37 Dose: 17 gm Zolpidem Tartrate (Ambien) 5 mg PO HS PRN PRN Reason: Sleep Last Admin: 12/10/16 21:57 Dose: 5 mg - Labs Labs: 12/10/16 07:45 12/07/16 07:25 PT 11.9 SECONDS (9.6-11.2) H 12/07/16 07:25 INR 1.14 (0.92-1.08) H 12/07/16 07:25 APTT 22.8 SECONDS (23.3-32.5) L 12/07/16 07:25 Assessment and Plan (1) Abdominal pain Status: Acute (2) Difficulty walking Status: Chronic (3) Edema of foot Status: Acute (4) Facial palsy Status: Acute (5) Gastritis Status: Acute (6) Low TSH level Status: Acute (7) Low back pain Status: Acute (8) Multiple sclerosis exacerbation Status: Acute
[2016-12-11] MEDS: Insulin Regular 100 units/ml SC SCH ×2 (07:08→22:19)
[2016-12-11] MEDS: Enoxaparin 40 mg Syringe SC SCH (08:19)
[2016-12-11] MEDS: Pantoprazole 40 mg EC Tab PO SCH (08:19)
[2016-12-11] MEDS: POLYETHYLENE GLYCOL 3350 17 GM/Dose PACKET PO SCH (08:19)
--- NOTE | 2016-12-11 12:56 | CP.PCM.PN ---
Subjective - Date & Time of Evaluation Date of Evaluation: 12/11/16 Time of Evaluation: 11:10 - Subjective Subjective: Pt seen and examined. Denied any complaint. Objective - Vital Signs/Intake and Output Vital Signs (last 24 hours): Temp Pulse Resp BP Pulse Ox 97.9 F 69 18 139/96 H 97 12/11/16 07:31 12/11/16 07:31 12/11/16 07:31 12/11/16 09:01 12/11/16 07:31 - Medications Medications: Current Medications Alprazolam (Xanax) 0.25 mg PO HS PRN PRN Reason: Anxiety Stop: 12/13/16 22:18 Amoxicillin (Amoxil 500 Mg Cap) 500 mg PO Q8 [facility] Stop: 12/12/16 06:01 Last Admin: 12/11/16 06:02 Dose: 500 mg Baclofen (Lioresal) 10 mg PO TID [facility] Last Admin: 12/11/16 12:23 Dose: 10 mg Docusate Sodium (Colace) 100 mg PO BID [facility] Last Admin: 12/11/16 08:16 Dose: 100 mg Enoxaparin Sodium (Lovenox) 40 mg SC DAILY [facility] PRN Reason: Protocol Last Admin: 12/11/16 08:19 Dose: 40 mg Furosemide (Lasix) 20 mg PO DAILY [facility] Last Admin: 12/11/16 09:01 Dose: 20 mg Home Med (Dalfampridine [Ampyra]) 10 mg PO Q12 [facility] Methylprednisolone 250 mg/ (Sodium Chloride) 104 mls @ 100 mls/hr IVPB 0300, 0900,1500,2100 [facility] Stop: 12/12/16 03:00 Last Admin: 12/11/16 08:14 Dose: 100 mls/hr Insulin Human Regular (Humulin R) 0 units SC 0630,2100 [facility] PRN Reason: Protocol Ondansetron HCl (Zofran Tab) 4 mg PO Q4 PRN PRN Reason: Nausea/Vomiting Pantoprazole Sodium (Protonix Ec Tab) 40 mg PO DAILY [facility] Last Admin: 12/11/16 08:19 Dose: 40 mg Polyethylene Glycol (Miralax) 17 gm PO DAILY [facility] Last Admin: 12/11/16 08:19 Dose: 17 gm Zolpidem Tartrate (Ambien) 5 mg PO HS PRN PRN Reason: Sleep Last Admin: 12/10/16 21:57 Dose: 5 mg - Labs Labs: 12/10/16 07:45 12/07/16 07:25 PT 11.9 SECONDS (9.6-11.2) H 12/07/16 07:25 INR 1.14 (0.92-1.08) H 12/07/16 07:25 APTT 22.8 SECONDS (23.3-32.5) L 12/07/16 07:25 - Constitutional Appears: No Acute Distress - Head Exam Head Exam: ATRAUMATIC - Eye Exam Eye Exam: absent: Scleral icterus - ENT Exam ENT Exam: Mucous Membranes Moist - Neck Exam Neck Exam: absent: Meningismus - Respiratory Exam Respiratory Exam: absent: Rhonchi, Wheezes, Respiratory Distress - Cardiovascular Exam Cardiovascular Exam: REGULAR RHYTHM, +S1, +S2 - GI/Abdominal Exam GI & Abdominal Exam: Soft. absent: Tenderness - Rectal Exam Rectal Exam: Deferred - Neurological Exam Neurological Exam: Alert, Oriented x3 - Psychiatric Exam Psychiatric exam: Normal Affect - Skin Skin Exam: Dry, Intact Assessment and Plan (1) Multiple sclerosis exacerbation Status: Acute (2) Abdominal pain Status: Resolved (3) Jarrell's palsy Status: Chronic - Assessment and Plan (Free Text) Assessment: 46 yo male with history of Spondylosis and Multiple sclerosis was admitted at [facility] because of MS exacerbation. He was managed with SoluMedrol then transferred to Acute Rehab for continuation of management and PT. 1. Multiple Sclerosis Exacerbation last dose of Solu-Medrol 250mg tomorrow as per Dr Carolina Lara on physiatry consult continue PT and OT 2. Abdominal Pain from constipation relieved on Lactulose/ Miralax/Colace 3. Facial Palsy right facial weakness since 2 years ago
--- NOTE | 2016-12-11 18:32 | CP.PCM.PN ---
Subjective - Date & Time of Evaluation Date of Evaluation: 12/11/16 Time of Evaluation: 18:31 - Subjective Subjective: Patient seen in room, doing ok feels much better functionally since his time here looking to d/c home able to be more independent Objective - Vital Signs/Intake and Output Vital Signs (last 24 hours): Temp Pulse Resp BP Pulse Ox 97.9 F 69 18 139/96 H 97 12/11/16 07:31 12/11/16 07:31 12/11/16 07:31 12/11/16 09:01 12/11/16 07:31 - Medications Medications: Current Medications Alprazolam (Xanax) 0.25 mg PO HS PRN PRN Reason: Anxiety Stop: 12/13/16 22:18 Amoxicillin (Amoxil 500 Mg Cap) 500 mg PO Q8 [facility] Stop: 12/12/16 06:01 Last Admin: 12/11/16 13:45 Dose: 500 mg Baclofen (Lioresal) 10 mg PO TID [facility] Last Admin: 12/11/16 16:44 Dose: 10 mg Docusate Sodium (Colace) 100 mg PO BID [facility] Last Admin: 12/11/16 16:44 Dose: 100 mg Enoxaparin Sodium (Lovenox) 40 mg SC DAILY [facility] PRN Reason: Protocol Last Admin: 12/11/16 08:19 Dose: 40 mg Furosemide (Lasix) 20 mg PO DAILY [facility] Last Admin: 12/11/16 09:01 Dose: 20 mg Home Med (Dalfampridine [Ampyra]) 10 mg PO Q12 [facility] Methylprednisolone 250 mg/ (Sodium Chloride) 104 mls @ 100 mls/hr IVPB 0300, 0900,1500,2100 [facility] Stop: 12/12/16 03:00 Last Admin: 12/11/16 16:43 Dose: 100 mls/hr Insulin Human Regular (Humulin R) 0 units SC 0630,2100 [facility] PRN Reason: Protocol Ondansetron HCl (Zofran Tab) 4 mg PO Q4 PRN PRN Reason: Nausea/Vomiting Pantoprazole Sodium (Protonix Ec Tab) 40 mg PO DAILY [facility] Last Admin: 12/11/16 08:19 Dose: 40 mg Polyethylene Glycol (Miralax) 17 gm PO DAILY [facility] Last Admin: 12/11/16 08:19 Dose: 17 gm Zolpidem Tartrate (Ambien) 5 mg PO HS PRN PRN Reason: Sleep Last Admin: 12/10/16 21:57 Dose: 5 mg - Labs Labs: 12/10/16 07:45 12/07/16 07:25 PT 11.9 SECONDS (9.6-11.2) H 12/07/16 07:25 INR 1.14 (0.92-1.08) H 12/07/16 07:25 APTT 22.8 SECONDS (23.3-32.5) L 12/07/16 07:25
[2016-12-12] MEDS: Insulin Regular 100 units/ml SC SCH ×2 (06:50→21:44)
[2016-12-12] MEDS: Enoxaparin 40 mg Syringe SC SCH ×2 (08:11→08:15)
[2016-12-12] MEDS: Pantoprazole 40 mg EC Tab PO SCH (08:11)
[2016-12-12] MEDS: POLYETHYLENE GLYCOL 3350 17 GM/Dose PACKET PO SCH (08:11)
--- NOTE | 2016-12-12 08:56 | PSY.TMCNF ---
Nursing - Vital Signs Vital Signs (Last 8 hours): Vital Signs 12/12/16 12/12/16 08:10 08:14 Temperature 98.5 F Pulse Rate 61 Respiratory 20 Rate Blood Pressure 131/68 131/68 O2 Sat by Pulse 99 Oximetry Pain: 0 - Medications/Other Issues Comment: Pt is at low nutritional risk. No goals at this time- will determine if goals are needed during rescreen of pt. Pt due for rescreen assessment by 05/22. - Bladder Management Bladder Pattern: Normal Voiding Method: Toilet, Urinal - Bowel Management Bowel Pattern: Normal - Goals/Time Frame Comments: Pt was seen during his PT session during rest break. Pt was able to identify his leisure interests such as watching television and watching videos online. Pt presents with poor safety awareness and poor education of diagnosis 2 ' videos he watches online. Pt reports he has no support system, pt reported, "Two girlfriends" and stated that his left him a month ago and now lives alone. Pt has [employer] that comes to assist pt with chores and ADL's. Pt would benefit from recreation therapy sessions to improve arousal level and safety awareness level. Physical Therapy - Bed Mobility Bed Mobility: Supervision, Verbal Cues, Contact Guard Comment: -pending fatigue and motivation - Transfers Wheelchair to Mat: Verbal Cues, Contact Guard Sit to Stand: Verbal Cues, Contact Guard, Minimal Assistance Comment: uses RW and poor motor control pattern of BLEs - Ambulation Level of Assistance: Verbal Cues, Contact Guard Distance (ft.): 12 Assistive Devices: Rolling Walker Orthoses: n/a Comment: -x 1 trial with RW with WC follow, impaired reciprocal pattern, FWB BLE. -genu recurvatum BLE (increased on L compared to R). -uses forward flexed posture leaning on BUE during gait on walker, weakness on L side with impaired hip flexion in swing and reduced R step length 2' to weakness in LLE during stance. -unable to ambulate increased distances today as he reports "I am just shot today"; patient requests to sit down - Stair Negotiation Stairs: Level of Assistance: Minimal Assistance Handrails: Right Stairs: Assistive Devices: Right Handrail Comment: 2 steps with min A with B rails with step to pattern. -pt reports he always has assistance at home for stair negotiation. -pt resistant to education on how to improve safety with stair training - Standing Balance Static Stand: Minimal Assistance Dynamic Stand: Minimal Assistance - Pain Pain (assessed during therapy session): 0 - Insight/Carryover Insight/Carryover: Fair - Patient/Family Education Comment: pt educated regarding DME and bathroom safety, pt states he understands. - Assessment/Plan Assessment: Pt is engaged in independent leisure tasks throughout his free time. Pt is encouraged to participate in sessions; however, pt expresses no interest. When provided pt with MS support and education, pt stated that he has his own resources and did not want to receive any further information or handouts. Pt presents with decrease safety awareness and decrease awareness of deficits. - Goals Timeframe: 1 week Goals: stg. pt will complete functional transfers at S level without requiring safety cues to prevent LOB. ltg. pt will complete shower txfers with shower chair at MIN A. pt will complete toilet txfers at MOD I with DME. pt will complete bathing at MIN A. pt will complete toileting at MOD I. pt will complete LE dressing at MIN A level (met) - Provider License Number: [id number] Occupational Therapy - Arousal/Attention/Orientation Patient Orientation: Person, Place, Time - ADL/IADL Self Feeding: Independent Grooming: Set-up Help Dressing-Upper Extremity: Modified Independent Dressing-Lower Extremity: Minimal Assistance - Sitting Balance Static Sitting: Independent with upper extremity support Dynamic Sitting: Requires supervision - Transfers Wheelchair to Bed Transfers: Minimal Assistance Toilet Transfers: Minimal Assistance - Upper Extremity Status Right Upper Extremity Comment: Active shoulder flexion 90*, PROM shoulder flexion WFL. MMT grossly 4-/5 Left Upper Extremity Comment: Active shoulder flexion 90*, PROM shoulder flexion WFL. MMT grossly 4-/5 - Pain Pain (assessed during therapy session): 0 - Insight/Carryover Insight/Carryover: Fair - Patient/Family Education Comment: pt educated regarding DME and bathroom safety, pt states he understands. - Assessment/Plan Assessment: Pt is engaged in independent leisure tasks throughout his free time. Pt is encouraged to participate in sessions; however, pt expresses no interest. When provided pt with MS support and education, pt stated that he has his own resources and did not want to receive any further information or handouts. Pt presents with decrease safety awareness and decrease awareness of deficits. - Goals Timeframe: 1 week Goals: stg. pt will complete functional transfers at S level without requiring safety cues to prevent LOB. ltg. pt will complete shower txfers with shower chair at MIN A. pt will complete toilet txfers at MOD I with DME. pt will complete bathing at MIN A. pt will complete toileting at MOD I. pt will complete LE dressing at MIN A level (met) - Provider Therapist: Yaima Smith License Number: [id number] Speech Therapy - Plan Assessment: Pt is engaged in independent leisure tasks throughout his free time. Pt is encouraged to participate in sessions; however, pt expresses no interest. When provided pt with MS support and education, pt stated that he has his own resources and did not want to receive any further information or handouts. Pt presents with decrease safety awareness and decrease awareness of deficits. Recreational Therapy - Participation Participation: Monitors His/Her Own Leisure Time - Attendance Attendance: Daily - Activities Leisure Activities: Television - Socialization Level of Socialization: Initiates/interacts freely with care givers and peer - Diversional Time Diversional Time: television, talking on phone - Assessment Assessment/Plan: Pt is engaged in independent leisure tasks throughout his free time. Pt is encouraged to participate in sessions; however, pt expresses no interest. When provided pt with MS support and education, pt stated that he has his own resources and did not want to receive any further information or handouts. Pt presents with decrease safety awareness and decrease awareness of deficits. Problems Currently Limiting Participation: weakness, decrease safety awareness, decrease leisure awareness level Goals and Time Frame: Pt will be encouraged to participate in 1:1 and group recreation therapy sessions 3-5x week to improve arousal level, safety awareness level, and leisure awareness level. - Provider Therapist: Doris Gross, [employer] #[id number] Nutrition - Current Diet Current Diet/ Supplement/ Feedings: Regular diet - Appetite Percent Meal Consumed: 75-100% - Assessment/Goals/Time Frame Assessment/Goals/Time Frame: Pt is at low nutritional risk. No goals at this time- will determine if goals are needed during rescreen of pt. Pt due for rescreen assessment by 12/13/16. - Provider Provider: Aimee Henley MS, RD Rehabilitation Plan - Treatment Plan Treatment Plan: Physical Therapy, Occupational Therapy, Dietary, Patient/Family Education - Discharge Plan Estimated Date of Discharge: 12/14/16 Discharge to: Home
--- NOTE | 2016-12-12 09:30 | CP.PCM.PN ---
Subjective - Date & Time of Evaluation Date of Evaluation: 12/12/16 Time of Evaluation: 09:28 - Subjective Subjective: Patient seen in room he is doing ok better compliance to some degree with therapy, but still wanting to do things his way and this is a balancing act to have him do what is right and still have him participate ELOS 12/14/16 He cannot ambulate safely for more than a short distance and will obviously need a wheelchair and rolling walker and bedside commode on discharge continue current care Objective - Vital Signs/Intake and Output Vital Signs (last 24 hours): Temp Pulse Resp BP Pulse Ox 98.5 F 61 20 131/68 99 12/12/16 09:13 12/12/16 09:13 12/12/16 09:13 12/12/16 09:13 12/12/16 08:14 - Medications Medications: Current Medications Alprazolam (Xanax) 0.25 mg PO HS PRN PRN Reason: Anxiety Stop: 12/13/16 22:18 Baclofen (Lioresal) 10 mg PO TID [facility] Last Admin: 12/12/16 08:11 Dose: 10 mg Docusate Sodium (Colace) 100 mg PO BID [facility] Last Admin: 12/12/16 08:10 Dose: 100 mg Enoxaparin Sodium (Lovenox) 40 mg SC DAILY [facility] PRN Reason: Protocol Last Admin: 12/12/16 08:15 Dose: Not Given Furosemide (Lasix) 20 mg PO DAILY [facility] Last Admin: 12/12/16 08:10 Dose: 20 mg Home Med (Dalfampridine [Ampyra]) 10 mg PO Q12 [facility] Insulin Human Regular (Humulin R) 0 units SC 0630,2100 [facility] PRN Reason: Protocol Last Admin: 12/12/16 06:50 Dose: 1 unit Ondansetron HCl (Zofran Tab) 4 mg PO Q4 PRN PRN Reason: Nausea/Vomiting Pantoprazole Sodium (Protonix Ec Tab) 40 mg PO DAILY [facility] Last Admin: 12/12/16 08:11 Dose: 40 mg Polyethylene Glycol (Miralax) 17 gm PO DAILY [facility] Last Admin: 12/12/16 08:11 Dose: 17 gm Zolpidem Tartrate (Ambien) 5 mg PO HS PRN PRN Reason: Sleep Last Admin: 12/11/16 22:44 Dose: 5 mg - Labs Labs: 12/10/16 07:45 12/07/16 07:25 PT 11.9 SECONDS (9.6-11.2) H 12/07/16 07:25 INR 1.14 (0.92-1.08) H 12/07/16 07:25 APTT 22.8 SECONDS (23.3-32.5) L 12/07/16 07:25
[2016-12-12] MEDS ORDERED: methylPREDNISolone 40 MG in Sodium Chloride 0.9% 100 ML IVPB ONE (21:55)
--- NOTE | 2016-12-13 00:10 | CP.PCM.PN ---
Subjective - Date & Time of Evaluation Date of Evaluation: 12/12/16 Time of Evaluation: 21:35 - Subjective Subjective: Today is his last day of receiving IV Solumedrol. He has tolerated the treatment and his left side hemiparesis has improved significantly. His left facial palsy has improved remarkably. He is asking for an earlier discharge. His EEG on admission is Normal. He is able to manage walking to the Bathroom. Objective - Vital Signs/Intake and Output Vital Signs (last 24 hours): Temp Pulse Resp BP Pulse Ox 97.9 F 69 20 139/71 96 12/12/16 20:26 12/12/16 20:26 12/12/16 20:26 12/12/16 20:26 12/12/16 20:26 - Medications Medications: Current Medications Alprazolam (Xanax) 0.25 mg PO HS PRN PRN Reason: Anxiety Stop: 12/13/16 22:18 Baclofen (Lioresal) 10 mg PO TID [facility] Last Admin: 12/12/16 16:43 Dose: 10 mg Docusate Sodium (Colace) 100 mg PO BID [facility] Last Admin: 12/12/16 16:43 Dose: 100 mg Enoxaparin Sodium (Lovenox) 40 mg SC DAILY [facility] PRN Reason: Protocol Last Admin: 12/12/16 08:15 Dose: Not Given Furosemide (Lasix) 20 mg PO DAILY [facility] Last Admin: 12/12/16 08:10 Dose: 20 mg Home Med (Dalfampridine [Ampyra]) 10 mg PO Q12 [facility] Insulin Human Regular (Humulin R) 0 units SC 0630,2100 [facility] PRN Reason: Protocol Last Admin: 12/12/16 21:44 Dose: Not Given Ondansetron HCl (Zofran Tab) 4 mg PO Q4 PRN PRN Reason: Nausea/Vomiting Pantoprazole Sodium (Protonix Ec Tab) 40 mg PO DAILY [facility] Last Admin: 12/12/16 08:11 Dose: 40 mg Polyethylene Glycol (Miralax) 17 gm PO DAILY [facility] Last Admin: 12/12/16 08:11 Dose: 17 gm Zolpidem Tartrate (Ambien) 5 mg PO HS PRN PRN Reason: Sleep Last Admin: 12/12/16 23:09 Dose: 5 mg - Labs Labs: 12/10/16 07:45 12/07/16 07:25 PT 11.9 SECONDS (9.6-11.2) H 12/07/16 07:25 INR 1.14 (0.92-1.08) H 12/07/16 07:25 APTT 22.8 SECONDS (23.3-32.5) L 12/07/16 07:25 Assessment and Plan (1) Difficulty walking Status: Chronic (2) Edema of foot Status: Resolved (3) Facial palsy Status: Chronic (4) Multiple sclerosis exacerbation Status: Chronic
[2016-12-13] MEDS: Insulin Regular 100 units/ml SC SCH ×2 (06:59→21:52)
[2016-12-13 08:24] VITALS: O2SAT 97
[2016-12-13] MEDS: POLYETHYLENE GLYCOL 3350 17 GM/Dose PACKET PO SCH (08:40)
[2016-12-13] MEDS: Pantoprazole 40 mg EC Tab PO SCH (08:55)
[2016-12-13] MEDS: Enoxaparin 40 mg Syringe SC SCH (09:03)
--- NOTE | 2016-12-13 13:44 | CP.PCM.PN ---
Subjective - Date & Time of Evaluation Date of Evaluation: 12/13/16 Time of Evaluation: 15:00 - Subjective Subjective: Patient seen and examined bedside.Sitting in chair in NAD but complaining of feeling weak and unable to walk as before this exacerbation .States that still has significant weakness ( and showing mostly the right side) , unable to walk more than 5 feet . States that his weakness and his low libido is probably related to side effect of steroids. Hemodynamically stable, afebrile. No acute issues overnight For discharge in AM Off solumedrol . Objective - Vital Signs/Intake and Output Vital Signs (last 24 hours): Temp Pulse Resp BP Pulse Ox 98.5 F 85 22 137/84 97 12/13/16 08:23 12/13/16 08:23 12/13/16 08:23 12/13/16 08:55 12/13/16 08:23 - Medications Medications: Current Medications Acetaminophen (Tylenol 325mg Tab) 650 mg PO Q6 PRN PRN Reason: Pain, moderate (4-7) Alprazolam (Xanax) 0.25 mg PO HS PRN PRN Reason: Anxiety Stop: 12/13/16 22:18 Baclofen (Lioresal) 10 mg PO TID [facility] Last Admin: 12/13/16 12:32 Dose: 10 mg Docusate Sodium (Colace) 100 mg PO BID [facility] Last Admin: 12/13/16 08:55 Dose: 100 mg Enoxaparin Sodium (Lovenox) 40 mg SC DAILY [facility] PRN Reason: Protocol Last Admin: 12/13/16 09:03 Dose: 40 mg Furosemide (Lasix) 20 mg PO DAILY [facility] Last Admin: 12/13/16 08:55 Dose: 20 mg Home Med (Dalfampridine [Ampyra]) 10 mg PO Q12 [facility] Insulin Human Regular (Humulin R) 0 units SC 0630,2100 [facility] PRN Reason: Protocol Last Admin: 12/13/16 06:59 Dose: Not Given Ondansetron HCl (Zofran Tab) 4 mg PO Q4 PRN PRN Reason: Nausea/Vomiting Pantoprazole Sodium (Protonix Ec Tab) 40 mg PO DAILY [facility] Last Admin: 12/13/16 08:55 Dose: 40 mg Polyethylene Glycol (Miralax) 17 gm PO DAILY [facility] Last Admin: 12/13/16 08:40 Dose: 17 gm Zolpidem Tartrate (Ambien) 5 mg PO HS PRN PRN Reason: Sleep Last Admin: 12/12/16 23:09 Dose: 5 mg - Labs Labs: 12/10/16 07:45 12/07/16 07:25 PT 11.9 SECONDS (9.6-11.2) H 12/07/16 07:25 INR 1.14 (0.92-1.08) H 12/07/16 07:25 APTT 22.8 SECONDS (23.3-32.5) L 12/07/16 07:25 - Constitutional Appears: Non-toxic, No Acute Distress - Head Exam Head Exam: ATRAUMATIC, NORMOCEPHALIC - Eye Exam Eye Exam: Normal appearance, PERRL - ENT Exam ENT Exam: Mucous Membranes Moist, Normal Exam - Neck Exam Neck Exam: Full ROM, Normal Inspection - Respiratory Exam Respiratory Exam: Clear to Ausculation Bilateral, NORMAL BREATHING PATTERN. absent: Rhonchi, Wheezes - GI/Abdominal Exam GI & Abdominal Exam: Soft, Normal Bowel Sounds. absent: Distended, Guarding, Tenderness, Rebound - Rectal Exam Rectal Exam: Deferred - Extremities Exam Extremities Exam: Normal Capillary Refill. absent: Pedal Edema - Back Exam Back Exam: NORMAL INSPECTION - Neurological Exam Neurological Exam: Alert, Awake, Oriented x3 Additional comments: right facial droop weakness more to right side - Psychiatric Exam Psychiatric exam: Normal Affect - Skin Skin Exam: Dry, Normal Color, Warm Assessment and Plan - Assessment and Plan (Free Text) Assessment: 46 yo male with history of Spondylosis and Multiple sclerosis was admitted at [facility] because of MS exacerbation. He was managed with SoluMedrol then transferred to Acute Rehab for continuation o Solumedrol IV and PT. 1. Multiple Sclerosis Exacerbation Finished course of IV solumedrol as recommended by neurologist ambulation difficulty due to weakness and gait instability. Wheelchair ordered Neurology consult with Dr. simons on board Dr Lara on physiatry consult continue PT and OT 2. Abdominal Pain from constipation relieved on Lactulose/ Miralax/Colace 3. Facial Palsy right facial weakness since 2 years ago
--- NOTE | 2016-12-14 00:42 | CP.PCM.PN ---
Subjective - Date & Time of Evaluation Date of Evaluation: 12/13/16 Time of Evaluation: 21:30 - Subjective Subjective: Not in distress, doing better after finishing his course of Solumedrol. His ability to walk is limited without the Ampyra that he left at home and has no access to it currently. Objective - Vital Signs/Intake and Output Vital Signs (last 24 hours): Temp Pulse Resp BP Pulse Ox 98.4 F 82 20 133/82 97 12/13/16 20:37 12/13/16 20:37 12/13/16 20:37 12/13/16 20:37 12/13/16 20:37 - Medications Medications: Current Medications Acetaminophen (Tylenol 325mg Tab) 650 mg PO Q6 PRN PRN Reason: Pain, moderate (4-7) Last Admin: 12/13/16 13:53 Dose: 650 mg Baclofen (Lioresal) 10 mg PO TID [facility] Last Admin: 12/13/16 17:11 Dose: 10 mg Docusate Sodium (Colace) 100 mg PO BID [facility] Last Admin: 12/13/16 17:11 Dose: 100 mg Enoxaparin Sodium (Lovenox) 40 mg SC DAILY [facility] PRN Reason: Protocol Last Admin: 12/13/16 09:03 Dose: 40 mg Furosemide (Lasix) 20 mg PO DAILY [facility] Last Admin: 12/13/16 08:55 Dose: 20 mg Home Med (Dalfampridine [Ampyra]) 10 mg PO Q12 [facility] Insulin Human Regular (Humulin R) 0 units SC 0630,2100 [facility] PRN Reason: Protocol Last Admin: 12/13/16 21:52 Dose: Not Given Ondansetron HCl (Zofran Tab) 4 mg PO Q4 PRN PRN Reason: Nausea/Vomiting Pantoprazole Sodium (Protonix Ec Tab) 40 mg PO DAILY [facility] Last Admin: 12/13/16 08:55 Dose: 40 mg Polyethylene Glycol (Miralax) 17 gm PO DAILY [facility] Last Admin: 12/13/16 08:40 Dose: 17 gm Zolpidem Tartrate (Ambien) 5 mg PO HS PRN PRN Reason: Sleep Last Admin: 12/13/16 23:51 Dose: 5 mg - Labs Labs: 12/10/16 07:45 12/07/16 07:25 PT 11.9 SECONDS (9.6-11.2) H 12/07/16 07:25 INR 1.14 (0.92-1.08) H 12/07/16 07:25 APTT 22.8 SECONDS (23.3-32.5) L 12/07/16 07:25 Assessment and Plan (1) Difficulty walking Status: Chronic (2) Facial palsy Status: Chronic (3) Low back pain Status: Chronic (4) Multiple sclerosis exacerbation Status: Chronic
[2016-12-14] MEDS: Insulin Regular 100 units/ml SC SCH (05:51)
[2016-12-14 06:52] LABS: HEMATOCRIT 44.7 % (35.0-51.0); MEAN CELL VOLUME 81.2 fl (80.0-94.0); MEAN CORPUSCULAR HEMOGLOBIN 27.4 pg (27.0-31.0); MEAN CORPUSCULAR HGB CONC 33.7 g/dL (33.0-37.0); RED CELL DISTRIBUTION WIDTH 14.2 % (11.5-14.5)
[2016-12-14] MEDS: POLYETHYLENE GLYCOL 3350 17 GM/Dose PACKET PO SCH (08:55)
[2016-12-14] MEDS: Enoxaparin 40 mg Syringe SC SCH (08:55)
[2016-12-14] MEDS: Pantoprazole 40 mg EC Tab PO SCH (08:56)
[2016-12-14 10:53] VITALS: BP 126/84; PULSE 73; RESP 21; TEMP 98
--- NOTE | 2016-12-14 13:36 | CP.PCM.DIS ---
Provider - Provider Date of Admission: 12/06/16 20:59 Attending physician: Riki Latham Consults: Dr Carolina Lara Time Spent in preparation of Discharge (in minutes): 30 Diagnosis - Discharge Diagnosis (1) Multiple sclerosis exacerbation Status: Acute Comment: completed course of IV Solumedrol as recommended by neurologist. unable to take Ampyra. Dr Figueroa and Dr Lara on consults. 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 Hospital Course - Lab Results Lab Results: Most Recent Lab Values WBC 10.0 K/uL (4.8-10.8) 12/14/16 05:25 RBC 5.51 Mil/uL (4.40-5.90) 12/14/16 05:25 Hgb 15.1 g/dL (12.0-18.0) 12/14/16 05:25 Hct 44.7 % (35.0-51.0) 12/14/16 05:25 MCV 81.2 fl (80.0-94.0) 12/14/16 05:25 MCH 27.4 pg (27.0-31.0) 12/14/16 05:25 MCHC 33.7 g/dL (33.0-37.0) 12/14/16 05:25 RDW 14.2 % (11.5-14.5) 12/14/16 05:25 Plt Count 177 K/uL (130-400) 12/14/16 05:25 MPV 9.5 fl (7.2-11.7) 12/07/16 07:25 Neut % (Auto) 89.3 % (50.0-75.0) H 12/07/16 07:25 Lymph % (Auto) 5.2 % (20.0-40.0) L 12/07/16 07:25 Cowley % (Auto) 5.3 % (0.0-10.0) 12/07/16 07:25 Eos % (Auto) 0.0 % (0.0-4.0) 12/07/16 07:25 Baso % (Auto) 0.2 % (0.0-2.0) 12/07/16 07:25 Neut # 16.1 K/uL (1.8-7.0) H 12/07/16 07:25 Lymph # 0.9 K/uL (1.0-4.3) L 12/07/16 07:25 Cowley # 0.9 K/uL (0.0-0.8) H 12/07/16 07:25 Eos # 0.0 K/uL (0.0-0.7) 12/07/16 07:25 Baso # 0.0 K/uL (0.0-0.2) 12/07/16 07:25 Neutrophils % (Manual) 87 % (42-75) H 12/07/16 07:25 Lymphocytes % (Manual) 7 % (20-50) L 12/07/16 07:25 Monocytes % (Manual) 6 % (0-10) 12/07/16 07:25 Platelet Estimate Normal (NORMAL) 12/07/16 07:25 Anisocytosis (manual) Slight 12/07/16 07:25 PT 11.9 SECONDS (9.6-11.2) H 12/07/16 07:25 INR 1.14 (0.92-1.08) H 12/07/16 07:25 APTT 22.8 SECONDS (23.3-32.5) L 12/07/16 07:25 Sodium 139 mmol/l (132-148) 12/07/16 07:25 Potassium 4.4 MMOL/L (3.6-5.0) 12/07/16 07:25 Chloride 107 mmol/L (98-107) 12/07/16 07:25 Carbon Dioxide 25 mmol/L (22-30) 12/07/16 07:25 Anion Gap 11 (10-20) 12/07/16 07:25 BUN 20 mg/dl (9-20) 12/07/16 07:25 Creatinine 0.9 mg/dL (0.8-1.5) 12/07/16 07:25 Est GFR ( Amer) > 60 12/07/16 07:25 Est GFR (Non-Af Amer) > 60 12/07/16 07:25 POC Glucose (mg/dL) 107 mg/dL (65-110) 12/12/16 21:39 Random Glucose 158 mg/dL (75-110) H 12/07/16 07:25 Calcium 9.4 mg/dL (8.4-10.2) 12/07/16 07:25 Total Bilirubin 0.5 mg/dl (0.2-1.3) 12/07/16 07:25 AST 18 U/L (17-59) 12/07/16 07:25 ALT 31 U/L (21-72) 12/07/16 07:25 Alkaline Phosphatase 57 U/L (38-126) 12/07/16 07:25 Total Protein 6.2 G/DL (6.3-8.2) L 12/07/16 07:25 Albumin 3.5 g/dL (3.5-5.0) 12/07/16 07:25 Globulin 2.7 gm/dL (2.2-3.9) 12/07/16 07:25 Albumin/Globulin Ratio 1.3 (1.0-2.1) 12/07/16 07:25 - Hospital Course Hospital Course: 46 yo male with history of MS and Spondylosis was admitted at [facility] because of MS exacerbation. Pt was managed with SoluMedrol and got transferredto Acute Rehab where SoluMedrol was continued and patient continued t have PT/OT. He did well and now was discharged in stable condition. Discharge Exam - Head Exam Head Exam: ATRAUMATIC, NORMOCEPHALIC - Eye Exam Eye Exam: PERRL - ENT Exam ENT Exam: Mucous Membranes Moist - Respiratory Exam Respiratory Exam: absent: Rhonchi, Wheezes, Respiratory Distress - Cardiovascular Exam Cardiovascular Exam: REGULAR RHYTHM, +S1, +S2 - GI/Abdominal Exam GI & Abdominal Exam: Soft. absent: Tenderness - Rectal Exam Rectal Exam: Deferred - Neurological Exam Neurological exam: Alert, Oriented x3 - Psychiatric Exam Psychiatric exam: Normal Affect - Skin Skin Exam: Dry, Intact Discharge Plan - Follow Up Plan Condition: GOOD Disposition: HOME/ ROUTINE Instructions: Furosemide (By mouth), Baclofen (By mouth), Pantoprazole (By mouth), Dalfampridine (By mouth), Multiple Sclerosis (DC)
--- NOTE | 2016-12-15 00:09 | CP.PCM.PN ---
Subjective - Date & Time of Evaluation Date of Evaluation: 12/14/16 Time of Evaluation: 10:30 - Subjective Subjective: Patient completed his IV Solumedrol and had Rehab care and decided to go home. Patient is walking without Ampyra but for few feet only. His exacerbattion of Multiple sclerosis has been treated in full. 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 Objective - Vital Signs/Intake and Output Vital Signs (last 24 hours): Temp Pulse Resp BP Pulse Ox 98.0 F 73 21 126/84 97 12/14/16 10:00 12/14/16 10:00 12/14/16 10:00 12/14/16 10:00 12/14/16 10:00 - Labs Labs: 12/14/16 05:25 12/07/16 07:25 PT 11.9 SECONDS (9.6-11.2) H 12/07/16 07:25 INR 1.14 (0.92-1.08) H 12/07/16 07:25 APTT 22.8 SECONDS (23.3-32.5) L 12/07/16 07:25 Assessment and Plan (1) Difficulty walking Status: Chronic (2) Edema of foot Status: Resolved (3) Facial palsy Status: Chronic (4) Gastritis Status: Resolved (5) Low back pain Status: Chronic (6) Multiple sclerosis exacerbation Assessment & Plan: Left Hemiparesis. Status: Chronic
== END 2016-12-14 11:15 | disposition home or self-care (01) | DRG 60 ==
PROVIDERS: ADMIT Internal Medicine; ATTEND Internal Medicine
PROC: F07Z9FZ Gait Training/Functional Ambulation Treatment using Assistive, Adaptive, Supportive or Protective Equipment (ICD-10-PCS; principal; 2016-12-06)
PROC: F07L6FZ Therapeutic Exercise Treatment of Musculoskeletal System - Lower Back / Lower Extremity using Assistive, Adaptive, Supportive or Protective Equipment (ICD-10-PCS; 2016-12-06)
PROC: F08Z4FZ Home Management Treatment using Assistive, Adaptive, Supportive or Protective Equipment (ICD-10-PCS; 2016-12-06)
PROC: F07Z4FZ Wheelchair Mobility Treatment using Assistive, Adaptive, Supportive or Protective Equipment (ICD-10-PCS; 2016-12-06)
DX: G35 Multiple sclerosis (principal); G51.0 Bell's palsy; K29.70 Gastritis, unspecified, without bleeding; K59.00 Constipation, unspecified; G81.94 Hemiplegia, unspecified affecting left nondominant side; Z91.018 Allergy to other foods; R60.9 Edema, unspecified; M54.16 Radiculopathy, lumbar region; M53.3 Sacrococcygeal disorders, not elsewhere classified; R26.2 Difficulty in walking, not elsewhere classified; R94.6 Abnormal results of thyroid function studies